=== PATIENT | female | born 2000 | race Two or more races ===

== ENCOUNTER 2024-02-12 20:48 | Emergency (ER) | payer MEDICAID, OTHER ==
[~2024-02-12] VITALS: Ht 154.9 cm; Wt 50.0 kg
[2024-02-12 23:22] VITALS: BP 121/76; PULSE 83; RESP 18; TEMP 97.8; O2SAT 96
[2024-02-13 00:54] LABS: Urine Bacteria FEW /hpf (None Seen); Urine Blood 3+ /uL (Negative); Urine Clarity Turbid (Clear); Urine Color Colorless (Yellow); Urine Mucus FEW (None Seen); Urine Protein, UAD TRACE (Negative); Urine Urobilinogen Normal (Negative); Urine WBC 70 /hpf (0 - 5)
[2024-02-13] MEDS ORDERED: ZOFR4T PO (01:09)
[2024-02-13] MEDS ORDERED: ACET500T58 PO (01:09)
[2024-02-13] MEDS ORDERED: NITR-87 PO (01:09)
[2024-02-13] MEDS: NITROFURANTOIN 100 mg CAP PO ONE (01:18)
[2024-02-13] MEDS: ACETAMINOPHEN 500 MG TAB PO ONE (01:19)
== END 2024-02-13 01:20 | disposition home or self-care (01) ==
LOC: ER 20:48 → EEVIPCON 20:48 → ER 02-13 01:20
DX: N39.0 Urinary tract infection, site not specified (principal); R51.9 Headache, unspecified; R07.9 Chest pain, unspecified
CPT/HCPCS: 71111; 81001